=== PATIENT | male | born 1990 | race American Indian/Alaskan Native ===

== ENCOUNTER 2016-05-13 01:47 | Emergency (ER) | payer OTHER ==
[2016-05-13] MEDS ORDERED: Lidocaine 2% w Epi 1:100,000 Inj IJ ONE (02:00)
[2016-05-13 02:03] VITALS: BP 121/72; PULSE 74; RESP 17; TEMP 98.2; O2SAT 99
--- NOTE | 2016-05-13 02:48 | ED PDOC ---
HPI: General Adult Time Seen by Provider: 05/13/16 01:55 Chief Complaint (Nursing): Abnormal Skin Integrity Chief Complaint (Provider): abscess History Per: Patient History/Exam Limitations: no limitations Onset/Duration Of Symptoms: Days (1) Have you had recent travel within the past 21 days to any of the following countries: [place], [place], [place] or [place]?: No Current Symptoms Are (Timing): Still Present Additional Complaint(s): 25yo male presents to the ED with c/o axillary and abdominal abscess since yesterday that have become more painful today. No fever. Has been tested for diabetes but is not diabetic. Past Medical History Reviewed: Historical Data, Nursing Documentation, Vital Signs Vital Signs: Last Vital Signs Temp 98.2 F 05/13/16 01:58 Pulse 74 05/13/16 01:58 Resp 17 05/13/16 01:58 BP 121/72 05/13/16 01:58 Pulse Ox 99 05/13/16 02:57 - Medical History PMH: No Chronic Diseases - Surgical History Surgical History: No Surg Hx - Family History Family History: States: No Known Family Hx - Home Medications Home Medications: Ambulatory Orders Medication Instructions Recorded Penicillin VK [Pen-Vee K] 500 mg PO BID #20 tab 03/16/16 oxyCODONE/Acetaminophen [Percocet 1 ea PO Q6H PRN #15 tab 03/16/16 5/325 mg Tab] Clindamycin [Cleocin] 300 mg PO TID 10 Days 05/13/16 - Allergies Allergies/Adverse Reactions: Allergies Allergy/AdvReac Type Severity Reaction Status Date / Time No Known Allergies Allergy Verified 03/16/16 17:07 Review of Systems ROS Statement: Except As Marked, All Systems Reviewed And Found Negative Constitutional: Negative for: Fever Skin: Positive for: Other (axillary and abdominal abscess ) Physical Exam - Reviewed Nursing Documentation Reviewed: Yes Vital Signs Reviewed: Yes - Physical Exam Appears: Positive for: Well, No Acute Distress Head Exam: Positive for: ATRAUMATIC, NORMAL INSPECTION, NORMOCEPHALIC Skin: Positive for: Warm, Dry Eye Exam: Positive for: Normal appearance Neck: Positive for: Normal, Painless ROM, Supple Gastrointestinal/Abdominal: Positive for: Bowel Sounds, Soft, Other (erythema to skin RLQ measures 3x3cm in diameter without focal fluctuance ). Negative for : Tenderness Extremity: Positive for: Normal ROM, Other (2cm right axillary abscess). Negative for: Deformity Neurologic/Psych: Positive for: Alert, Oriented - ECG O2 Sat by Pulse Oximetry: 99 Pulse Ox Interpretation: Normal (RA) Medical Decision Making Medical Decision Makin: Impression: abscess Plan: Please refer to procedure note. Patient tolerated procedure well and is stable for d/c. Scribe Attestation: Documented by Kt Powell acting as a scribe for Celso Back MD. Provider Scribe Attestation: All medical record entries made by the Scribe were at my direction and personally dictated by me. I have reviewed the chart and agree that the record accurately reflects my personal performance of the history, physical exam, medical decision making, and the department course for this patient. I have also personally directed, reviewed, and agree with the discharge instructions and disposition. Procedures - Incision and Drainage Site: right axilla Blade Size: 10 Progress: Drained right axillary abscess with 2% lidocaine w/ epi (2mls). Dinesh 5mls of pus. Disposition - Clinical Impression Clinical Impression: Abscess - Patient ED Disposition Is Patient to be Admitted: No - Disposition Referrals: Michael Mejia MD [Primary Care Provider] - Disposition: Routine/Home Disposition Time: 02:40 Condition: STABLE Prescriptions: Clindamycin [Cleocin] 300 mg PO TID 10 Days Instructions: Abscess Incision and Drainage (ED)
== END 2016-05-13 03:00 | disposition home or self-care (01) ==
LOC: H.ER 01:47
DX: L02.91 Cutaneous abscess, unspecified (principal)

== ENCOUNTER 2016-07-22 07:39 | Emergency (ER) | payer OTHER ==
[2016-07-22 08:02] VITALS: RESP 18; TEMP 97; O2SAT 98
--- NOTE | 2016-07-22 09:09 | ED PDOC ---
HPI: Chest Pain Time Seen by Provider: 07/22/16 07:56 Chief Complaint (Nursing): Chest Pain Chief Complaint (Provider): Chest Pain History Per: Patient History/Exam Limitations: no limitations Onset/Duration Of Symptoms: Days Current Symptoms Are (Timing): Still Present Severity: Mild Quality: "Pain" Associated Symptoms: denies: Nausea, Dyspnea, Diaphoresis, Syncope Modifying Factors: None Exacerbating Factors: None Additional Complaint(s): Patient is a 26 year old male who presents to ED for ongoing abdominal pain with new onset chest discomfort. Patient notes mild difficulty breathing, pain is described as vague and worse with deep breaths. Denies nausea, vomiting, diarrhea, urinary changes or fever. Notes mild constipation, evaluated by unknown GI specialist who prescribed softeners but only provided mild relief Past Medical History Reviewed: Historical Data, Nursing Documentation, Vital Signs Vital Signs: Last Vital Signs Temp 97 F L 07/22/16 07:59 Pulse 77 07/22/16 09:17 Resp 18 07/22/16 07:59 BP 108/57 L 07/22/16 07:59 Pulse Ox 98 07/22/16 09:17 - Medical History PMH: No Chronic Diseases - Surgical History Surgical History: No Surg Hx - Family History Family History: States: Unknown Family Hx - Living Arrangements Living Arrangements: With Family - Social History Current smoker - smoking cessation education provided: Yes Alcohol: None Drugs: Denies - Home Medications Home Medications: Ambulatory Orders Medication Instructions Recorded Penicillin VK [Pen-Vee K] 500 mg PO BID #20 tab 03/16/16 oxyCODONE/Acetaminophen [Percocet 1 ea PO Q6H PRN #15 tab 03/16/16 5/325 mg Tab] Clindamycin [Cleocin] 300 mg PO TID 10 Days 05/13/16 Ranitidine HCl [Zantac] 150 mg PO BID #20 tablet 07/22/16 - Allergies Allergies/Adverse Reactions: Allergies Allergy/AdvReac Type Severity Reaction Status Date / Time No Known Allergies Allergy Verified 03/16/16 17:07 Review of Systems ROS Statement: Except As Marked, All Systems Reviewed And Found Negative Constitutional: Negative for: Fever, Chills Cardiovascular: Positive for: Chest Pain. Negative for: Palpitations, Light Headedness Respiratory: Positive for: Shortness of Breath Gastrointestinal: Positive for: Abdominal Pain. Negative for: Nausea, Vomiting Genitourinary Male: Negative for: Dysuria, Hematuria Musculoskeletal: Negative for: Neck Pain, Back Pain Skin: Negative for: Rash Neurological: Negative for: Weakness, Numbness Physical Exam - Reviewed Nursing Documentation Reviewed: Yes Vital Signs Reviewed: Yes - Physical Exam Appears: Positive for: Well, Non-toxic Skin: Positive for: Normal Color, Warm, DRY Eye Exam: Positive for: Normal appearance, PERRL Neck: Positive for: Normal, Painless ROM Cardiovascular/Chest: Positive for: Regular Rate, Rhythm. Negative for: Chest Non Tender ((+) anterior chest wall), Murmur Respiratory: Positive for: Normal Breath Sounds. Negative for: Respiratory Distress Gastrointestinal/Abdominal: Positive for: Soft, Tenderness (mild epigastric). Negative for: Distended, Guarding, Rebound Back: Positive for: Normal Inspection Extremity: Positive for: Normal ROM Neurologic/Psych: Positive for: Alert, Oriented - Laboratory Results Result Diagrams: 07/22/16 09:05 07/22/16 09:05 - ECG ECG: Positive for: Interpreted By Me ECG Rhythm: Positive for: Normal QRS, Sinus Rhythm. Negative for: ST/T Changes Rate: 77 O2 Sat by Pulse Oximetry: 98 (RA) Pulse Ox Interpretation: Normal Medical Decision Making Medical Decision Making: Time: 0835 Initial impression: Low risk chest pain, in setting of chronic abdominal pain. Initial plan: -- EKG -- CMP -- Lipase -- Troponin -- CBC -- D-Dimer -- PT/PTT -- CXR -- Pepcid Labs and CXR unremarkable after review DDimer neg No risk factors for premature CAD or PE. Has followup w GI August 02/ Rx zantac. Return ER for any worse or new symptoms. Scribe Attestation: Documented by Elisa Stevens acting as a scribe for Chilo Onofre DO MD Scribe Attestation: All medical record entries made by the Scribe were at my direction and personally dictated by me. I have reviewed the chart and agree that the record accurately reflects my personal performance of the history, physical exam, medical decision making, and the department course for this patient. I have also personally directed, reviewed, and agree with the discharge instructions and disposition. Disposition - Clinical Impression Clinical Impression: Acute chest pain - Patient ED Disposition Is Patient to be Admitted: No Counseled Patient/Family Regarding: Studies Performed, Diagnosis, Need For Followup, Rx Given - Disposition Referrals: Chilo Corrales MD, PhD [Staff Provider] - Disposition: Routine/Home Disposition Time: 11:40 Condition: STABLE Additional Instructions: See GI doctor for further testing and treatment. Return to ER for any new or worsening symptoms. take medication as prescribed. Prescriptions: Ranitidine HCl [Zantac] 150 mg PO BID #20 tablet Instructions: Chest Pain (ED), Abdominal Pain (ED)
[2016-07-22 09:11] LABS: BASO % 0.8 % (0.0-2.0); EOS # 0.1 K/uL (0.0-0.7); EOS % 1.3 % (0.0-4.0); HEMATOCRIT 46.5 % (35.0-51.0); LYMPH # 1.7 K/uL (1.0-4.3); LYMPH % 37.3 % (20.0-40.0); MEAN CELL VOLUME 86.3 fl (80.0-94.0); MEAN CORPUSCULAR HEMOGLOBIN 28.6 pg (27.0-31.0); MEAN CORPUSCULAR HGB CONC 33.1 g/dL (33.0-37.0); MEAN PLATELET VOLUME 8.8 fl (7.2-11.7); MONO # 0.4 K/uL (0.0-0.8); MONO % 9.2 % (0.0-10.0); NEUT # 2.4 K/uL (1.8-7.0); NEUT % 51.4 % (50.0-75.0); NRBC % 0.2 % (0.0-0.0); RED CELL DISTRIBUTION WIDTH 13.8 % (11.5-14.5); WHITE BLOOD COUNT 4.7 K/uL (4.8-10.8)
[2016-07-22 09:36] LABS: ALB/GLOB RATIO 1.3 (1.0-2.1); ALKALINE PHOSPHATASE 75 U/L (38-126); ALT/SGPT 47 U/L (21-72); AST/SGOT 27 U/L (17-59); BILIRUBIN,TOTAL 0.6 mg/dl (0.2-1.3); BLOOD UREA NITROGEN 12 mg/dl (9-20); CALCIUM 9.3 mg/dL (8.4-10.2); CARBON DIOXIDE 23 mmol/L (22-30); CHLORIDE 103 mmol/L (98-107); GFR AFRICAN-AMERICAN > 60; GLUCOSE,RANDOM 98 mg/dL (75-110); LIPASE 73 U/L (23-300); SODIUM 138 mmol/l (132-148)
--- NOTE | 2016-07-22 10:37 | RAD ---
HISTORY: chest pain/ r/o infiltrate COMPARISON: Comparison chest 10/30/2014 TECHNIQUE: Chest PA and lateral FINDINGS: LUNGS: Poor inspiration with low lung volumes, crowded bronchovascular markings and mild bibasilar atelectasis left greater than right PLEURA: No significant pleural effusion identified. No pneumothorax apparent. CARDIOVASCULAR: Normal. OSSEOUS STRUCTURES: No significant abnormalities. VISUALIZED UPPER ABDOMEN: Normal. OTHER FINDINGS: None. IMPRESSION: Poor inspiration with low lung volumes, crowded bronchovascular markings and mild bibasilar atelectasis left greater than right
[2016-07-22 12:00] LABS: PARTIAL THROMBOPLASTIN TIME 33.6 Seconds (25.6-37.1)
[2016-07-22 12:13] VITALS: BP 108/57; PULSE 77
--- NOTE | 2016-07-23 09:54 | CARD ---
APPROVED REPORT EKG Measurement Heart [id number] [id number] <Conclusion> Normal sinus rhythm Minimal voltage criteria for LVH, may be normal variant Borderline ECG
== END 2016-07-22 12:13 | disposition home or self-care (01) ==
LOC: H.ER 07:39
DX: R07.9 Chest pain, unspecified (principal); R10.9 Unspecified abdominal pain; G89.29 Other chronic pain; F17.200 Nicotine dependence, unspecified, uncomplicated

== ENCOUNTER 2016-07-30 06:40 | Emergency (ER) | payer OTHER ==
[2016-07-30 06:54] VITALS: BMI 38.7
[2016-07-30 06:56] VITALS: BP 126/72; PULSE 63; RESP 16; TEMP 98.9; O2SAT 98
--- NOTE | 2016-07-30 07:13 | ED PDOC ---
HPI: Dental Pain/Injury Time Seen by Provider: 07/30/16 06:59 Chief Complaint (Nursing): Dental Pain Chief Complaint (Provider): Dental Pain History Per: Patient History/Exam Limitations: no limitations Onset/Duration Of Symptoms: Days Current Symptoms Are (Timing): Still Present Severity: Moderate Quality: "Pain" Additional Complaint(s): Patient is a 26 year old male who presents to ED for a toothache for 3 days. Patient states he had a cavity in his upper left molar 1 month ago, repaired by a dentist but the filling fell out 4 days ago, pain began the following day. Notes pain is constant but worse with eating or drinking. Denies fever or facial swelling. No fever. States that he called his dentist but the earliest appointment is next month. Past Medical History Reviewed: Historical Data, Nursing Documentation, Vital Signs Vital Signs: Last Vital Signs Temp 98.9 F 07/30/16 06:54 Pulse 63 07/30/16 06:54 Resp 16 07/30/16 06:54 BP 126/72 07/30/16 06:54 Pulse Ox 98 07/30/16 06:54 - Medical History PMH: No Chronic Diseases - Surgical History Surgical History: No Surg Hx - Family History Family History: States: Unknown Family Hx - Living Arrangements Living Arrangements: With Family - Social History Current smoker - smoking cessation education provided: No Ex-Smoker (has not smoked in the last 12 months): No Alcohol: None Drugs: Denies - Home Medications Home Medications: Ambulatory Orders Medication Instructions Recorded Penicillin VK [Pen-Vee K] 500 mg PO BID #20 tab 03/16/16 oxyCODONE/Acetaminophen [Percocet 1 ea PO Q6H PRN #15 tab 03/16/16 5/325 mg Tab] Clindamycin [Cleocin] 300 mg PO TID 10 Days 05/13/16 Ranitidine HCl [Zantac] 150 mg PO BID #20 tablet 07/22/16 Lidocaine 2% Viscous 20 ml MM Q4 PRN #4 oz 07/30/16 - Allergies Allergies/Adverse Reactions: Allergies Allergy/AdvReac Type Severity Reaction Status Date / Time No Known Allergies Allergy Verified 07/30/16 06:54 Review of Systems ROS Statement: Except As Marked, All Systems Reviewed And Found Negative Constitutional: Negative for: Fever ENT: Positive for: Other (toothache). Negative for: Mouth Pain Respiratory: Negative for: Shortness of Breath Physical Exam - Reviewed Nursing Documentation Reviewed: Yes Vital Signs Reviewed: Yes - Physical Exam Appears: Positive for: Non-toxic, No Acute Distress Skin: Positive for: Normal Color, Warm Eye Exam: Positive for: Normal appearance ENT: Positive for: Other (Left upper molar tooth #12 (+) visable cavity with missing filling (-) abscess (-) gun erythema) Neck: Positive for: Normal, Painless ROM Cardiovascular/Chest: Positive for: Regular Rate, Rhythm. Negative for: Murmur Respiratory: Positive for: Normal Breath Sounds. Negative for: Respiratory Distress Extremity: Positive for: Normal ROM Neurologic/Psych: Positive for: Alert, Oriented - ECG O2 Sat by Pulse Oximetry: 98 (RA) Pulse Ox Interpretation: Normal Medical Decision Making Medical Decision Making: Time: 714 Initial impression: Toothache Initial plan: -- Viscous Lidocaine Discussed with patient the importance of following up with dentist, will give patient alternative dentist to try making an appointment with. Patient verbalized understanding. Scribe Attestation: Documented by Elisa Stevens acting as a scribe for Quinn Hinojosa MD MD Scribe Attestation: All medical record entries made by the Scribe were at my direction and personally dictated by me. I have reviewed the chart and agree that the record accurately reflects my personal performance of the history, physical exam, medical decision making, and the department course for this patient. I have also personally directed, reviewed, and agree with the discharge instructions and disposition. Disposition - Clinical Impression Clinical Impression: Toothache - Disposition Referrals: Iggy Caldera MD [Primary Care Provider] - Disposition: Routine/Home Disposition Time: 07:12 Condition: STABLE Additional Instructions: Mr. Hardy, thank you for letting us take care of you today. Return to the ER if your symptoms worsen. It is important you see a dentist so you can get a filling. You can make an appointment with the following dentist: Dr. Bennie Tay [address] [place], [place] [phone] Take the medication list below as prescribed Prescriptions: Lidocaine 2% Viscous 20 ml MM Q4 PRN #4 oz PRN Reason: Pain, Moderate (4-7) Instructions: Toothache (ED) Forms: [employer] (Khmer) Print Language: FAROESE - POA Present On Arrival: None
== END 2016-07-30 07:30 | disposition home or self-care (01) ==
LOC: H.ER 06:40
DX: K08.89 Other specified disorders of teeth and supporting structures (principal)

== ENCOUNTER 2016-09-01 10:11 | Emergency (ER) | payer OTHER ==
[2016-09-01 10:14] VITALS: BP 119/79; PULSE 76; TEMP 97; BMI 35.9
[2016-09-01 10:20] VITALS: O2SAT 98
[2016-09-01] MEDS ORDERED: Oxycodone/Acetaminophen 5/325 mg Tab PO STA (10:59)
--- NOTE | 2016-09-01 11:01 | ED PDOC ---
Lower Extremity Pain/Injury Time Seen by Provider: 09/01/16 10:17 Chief Complaint (Nursing): Lower Extremity Problem/Injury Chief Complaint (Provider): ankle injury Additional Complaint(s): 26 yo male, no PMH, presents to ED with complaint os fleft ankle pain sustained when he accidentally dropped a 100 lb weight on his ankle. 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 Past Medical History Reviewed: Nursing Documentation, Vital Signs Vital Signs: Last Vital Signs Temp 97 F L 09/01/16 10:13 Pulse 76 09/01/16 10:13 Resp BP 119/79 09/01/16 10:13 Pulse Ox 98 09/01/16 10:17 - Medical History PMH: No Chronic Diseases - Surgical History Surgical History: No Surg Hx - Family History Family History: States: Unknown Family Hx - Living Arrangements Living Arrangements: With Family - Social History Current smoker - smoking cessation education provided: No Alcohol: Social Drugs: Denies - Home Medications Home Medications: Ambulatory Orders Medication Instructions Recorded Penicillin VK [Pen-Vee K] 500 mg PO BID #20 tab 03/16/16 oxyCODONE/Acetaminophen [Percocet 1 ea PO Q6H PRN #15 tab 03/16/16 5/325 mg Tab] Clindamycin [Cleocin] 300 mg PO TID 10 Days 05/13/16 Ranitidine HCl [Zantac] 150 mg PO BID #20 tablet 07/22/16 Lidocaine 2% Viscous 20 ml MM Q4 PRN #4 oz 07/30/16 Ibuprofen [Motrin] 600 mg PO Q6 #20 tab 09/01/16 - Allergies Allergies/Adverse Reactions: Allergies Allergy/AdvReac Type Severity Reaction Status Date / Time No Known Allergies Allergy Verified 09/01/16 10:17 Review of Systems ROS Statement: Except As Marked, All Systems Reviewed And Found Negative Musculoskeletal: Positive for: Other (ankle pain) Physical Exam - Reviewed Nursing Documentation Reviewed: Yes Vital Signs Reviewed: Yes - Physical Exam Appears: Positive for: Well, Non-toxic, No Acute Distress Head Exam: Positive for: ATRAUMATIC, NORMAL INSPECTION, NORMOCEPHALIC Skin: Positive for: Normal Color, Warm, DRY Eye Exam: Positive for: EOMI, Normal appearance, PERRL ENT: Positive for: Normal ENT Inspection Neck: Positive for: Normal, Painless ROM Cardiovascular/Chest: Positive for: Regular Rate, Rhythm Respiratory: Positive for: CNT, Normal Breath Sounds Gastrointestinal/Abdominal: Positive for: Normal Exam, Bowel Sounds, Soft Back: Positive for: Normal Inspection Extremity: Positive for: Normal ROM, Tenderness (over medial aspect of ankle, no edema or ecchymosis) Neurologic/Psych: Positive for: Alert, Oriented - ECG O2 Sat by Pulse Oximetry: 98 Medical Decision Making Medical Decision Making: Pt notes pain is a 10. Percocet PO administered XR: NAD, as read by Ap-C RICE therapy advised. Balwinder wrap applied. Disposition - Clinical Impression Clinical Impression: Ankle injury - Patient ED Disposition Is Patient to be Admitted: No - Disposition Disposition: Routine/Home Disposition Time: 12:23 Condition: STABLE Prescriptions: Ibuprofen [Motrin] 600 mg PO Q6 #20 tab Instructions: Contusion in Adults (ED)
[2016-09-01] MEDS ORDERED: Oxycodone/Acetaminophen 5/325 mg Tab ONE (11:22)
--- NOTE | 2016-09-01 11:39 | RAD ---
PROCEDURE: Left Ankle Radiographs. HISTORY: dropped 100lbweight on ankle COMPARISON: None FINDINGS: BONES: Normal. No fracture. JOINTS: Normal. No osteoarthritis. Ankle mortise maintained. Talar dome intact SOFT TISSUES: Normal. OTHER FINDINGS: None. IMPRESSION: Normal left ankle radiographs.
[2016-09-01 12:27] VITALS: RESP 14
== END 2016-09-01 12:25 | disposition home or self-care (01) ==
LOC: H.ER 10:11
DX: S99.911A Unspecified injury of right ankle, initial encounter (principal); W22.8XXA Striking against or struck by other objects, initial encounter; Y99.0 Civilian activity done for income or pay

== ENCOUNTER 2017-01-22 14:53 | Emergency (ER) | payer OTHER ==
[2017-01-22 14:54] VITALS: BMI 35.9
[2017-01-22 15:04] VITALS: TEMP 98.2
[2017-01-22] MEDS ORDERED: Sodium Chloride 0.9% 1,000 ML IV STA (15:13)
[2017-01-22] MEDS ORDERED: DiphenhydrAMINE 50 mg/ml Inj IVP STA (15:13)
--- NOTE | 2017-01-22 15:19 | ED PDOC ---
HPI: CCC, URI, Sore Throat Time Seen by Provider: 01/22/17 15:05 Chief Complaint (Nursing): Shortness Of Breath Chief Complaint (Provider): throat pain History Per: Patient History/Exam Limitations: no limitations Onset/Duration Of Symptoms: Hrs (x2) Current Symptoms Are (Timing): Still Present Additional Complaint(s): 26 year old male who presents to the emergency department with a complaint of throat swelling associated with hoarseness and itchiness status post ingesting Aleeve 2 hours prior to arrival. Denied any shortness of breath. PMD: Iggy Caldera MD Past Medical History Reviewed: Historical Data, Nursing Documentation, Vital Signs Vital Signs: Last Vital Signs Temp 98.2 F 01/22/17 15:00 Pulse Resp 18 01/22/17 15:00 BP Pulse Ox 100 01/22/17 15:00 - Medical History PMH: No Chronic Diseases - Family History Family History: States: Unknown Family Hx - Home Medications Home Medications: Ambulatory Orders Medication Instructions Recorded Penicillin VK [Pen-Vee K] 500 mg PO BID #20 tab 03/16/16 oxyCODONE/Acetaminophen [Percocet 1 ea PO Q6H PRN #15 tab 03/16/16 5/325 mg Tab] Clindamycin [Cleocin] 300 mg PO TID 10 Days cap 05/13/16 Ranitidine HCl [Zantac] 150 mg PO BID #20 tablet 07/22/16 Lidocaine 2% Viscous 20 ml MM Q4 PRN #4 oz 07/30/16 Ibuprofen [Motrin] 600 mg PO Q6 #20 tab 09/01/16 Cetirizine HCl [Zyrtec] 10 mg PO DAILY #10 capsule 01/22/17 Famotidine [Pepcid] 20 mg PO Q12 #20 tab 01/22/17 predniSONE [predniSONE Tab] 10 mg PO TID #15 tab 01/22/17 - Allergies Allergies/Adverse Reactions: Allergies Allergy/AdvReac Type Severity Reaction Status Date / Time No Known Allergies Allergy Verified 09/01/16 10:17 Review of Systems ROS Statement: Except As Marked, All Systems Reviewed And Found Negative ENT: Positive for: Throat Pain (and itchiness), Throat Swelling, Other ( hoarsenss) Respiratory: Negative for: Shortness of Breath Physical Exam - Reviewed Nursing Documentation Reviewed: Yes Vital Signs Reviewed: Yes - Physical Exam Appears: Positive for: Well, Non-toxic, No Acute Distress Head Exam: Positive for: ATRAUMATIC, NORMAL INSPECTION, NORMOCEPHALIC Skin: Positive for: Normal Color. Negative for: Rash ENT: Positive for: Pharyngeal Erythema (mild). Negative for: Normal ENT Inspection, Tonsillar Swelling (or stridor/trismus) Cardiovascular/Chest: Positive for: Regular Rate, Rhythm, Chest Non Tender Respiratory: Positive for: Normal Breath Sounds (bilaterally). Negative for: Decreased Breath Sounds, Wheezing, Respiratory Distress Neurologic/Psych: Positive for: Alert (x3), Oriented Medical Decision Making Medical Decision Making: Initial Impression: Allergic reaction Initial Plan: * Benadryl 50mg IVP * NS 1,000ml IV per 100mls/hr * Pepcid 20mg IVP * SOLU-medrol 125mg IVP Scribe Attestation: Documented by Nydai Moreira, acting as a scribe for Andrea Carson MD. Provider Scribe Attestation: All medical record entries made by the Scribe were at my direction and personally dictated by me. I have reviewed the chart and agree that the record accurately reflects my personal performance of the history, physical exam, medical decision making, and the department course for this patient. I have also personally directed, reviewed, and agree with the discharge instructions and disposition. Disposition - Clinical Impression Clinical Impression: Allergic reaction - Patient ED Disposition Is Patient to be Admitted: No Counseled Patient/Family Regarding: Diagnosis, Need For Followup, Rx Given - Disposition Referrals: [facility] [Outside] Disposition: Routine/Home Disposition Time: 17:35 Condition: FAIR Prescriptions: Cetirizine HCl [Zyrtec] 10 mg PO DAILY #10 capsule Famotidine [Pepcid] 20 mg PO Q12 #20 tab predniSONE [predniSONE Tab] 10 mg PO TID #15 tab Instructions: General Allergic Reaction (ED) Forms: [employer] (Namibian)
[2017-01-22 17:04] VITALS: O2SAT 100
[2017-01-22 18:38] VITALS: BP 127/82; RESP 17
== END 2017-01-22 18:10 | disposition home or self-care (01) ==
LOC: H.ER 14:53
DX: T78.40XA Allergy, unspecified, initial encounter (principal)
CPT/HCPCS: 96374; 96375; 99283; J1200; J2930; J7040

== ENCOUNTER 2017-04-12 07:36 | Emergency (ER) | payer OTHER ==
[2017-04-12 07:37] VITALS: BMI 35.9
[2017-04-12 07:42] VITALS: BP 134/79; PULSE 78; TEMP 98.4; O2SAT 97
[2017-04-12 07:51] VITALS: RESP 16
--- NOTE | 2017-04-12 08:17 | ED PDOC ---
HPI: Dental Pain/Injury Time Seen by Provider: 04/12/17 08:02 Chief Complaint (Nursing): Dental Pain Chief Complaint (Provider): Dental Pain History Per: Patient History/Exam Limitations: no limitations Onset/Duration Of Symptoms: Days (x2 weeks), Persistent Current Symptoms Are (Timing): Still Present Additional Complaint(s): 26 year old male with medical history of reflux disease, presents to the emergency department with a complaint of left-sided upper and lower teeth pain worsen in the last 2 weeks. Denied any fever, chills, nausea, vomiting, cough, sore throat, chest pain or shortness of breath. Patient stated he was seen by a dentist 1 month ago for similar symptoms and advised to have oral surgery. He reported surgery was never scheduled but completed course of antibiotics prescribed. Patient noted he is allergic to Tylenol but took 1 tablet of Percocet from his mother for pain relief last night. PMD: none provided Past Medical History Reviewed: Nursing Documentation, Vital Signs Vital Signs: Last Vital Signs Temp 98.4 F 04/12/17 07:47 Pulse 78 04/12/17 07:47 Resp 16 04/12/17 07:47 BP 134/79 04/12/17 07:47 Pulse Ox 97 04/12/17 07:47 - Medical History PMH: GERD Denies: Chronic Kidney Disease - Surgical History Surgical History: No Surg Hx - Family History Family History: States: Unknown Family Hx - Living Arrangements Living Arrangements: Alone - Social History Current smoker - smoking cessation education provided: No Alcohol: Social Drugs: Denies - Immunization History Hx Tetanus Toxoid Vaccination: No Hx Influenza Vaccination: No Hx Pneumococcal Vaccination: No - Home Medications Home Medications: Ambulatory Orders Medication Instructions Recorded Penicillin VK [Pen-Vee K] 500 mg PO BID #20 tab 03/16/16 oxyCODONE/Acetaminophen [Percocet 1 ea PO Q6H PRN #15 tab 03/16/16 5/325 mg Tab] Clindamycin [Cleocin] 300 mg PO TID 10 Days cap 05/13/16 Ranitidine HCl [Zantac] 150 mg PO BID #20 tablet 07/22/16 Lidocaine 2% Viscous 20 ml MM Q4 PRN #4 oz 07/30/16 Ibuprofen [Motrin] 600 mg PO Q6 #20 tab 09/01/16 Cetirizine HCl [Zyrtec] 10 mg PO DAILY #10 capsule 01/22/17 Famotidine [Pepcid] 20 mg PO Q12 #20 tab 01/22/17 predniSONE [predniSONE Tab] 10 mg PO TID #15 tab 01/22/17 Clindamycin [Cleocin] 300 mg PO QID 7 Days cap 04/12/17 - Allergies Allergies/Adverse Reactions: Allergies Allergy/AdvReac Type Severity Reaction Status Date / Time acetaminophen [From Tylenol] Allergy SWELLING Verified 04/12/17 07:52 ibuprofen [From Motrin] Allergy SWELLING Verified 04/12/17 07:52 naproxen [From Aleve] Allergy SWELLING Verified 04/12/17 07:52 Review of Systems ROS Statement: Except As Marked, All Systems Reviewed And Found Negative Constitutional: Negative for: Fever, Chills ENT: Positive for: Mouth Pain (left sided upper/lower teeth pain). Negative for : Throat Pain Cardiovascular: Negative for: Chest Pain Respiratory: Negative for: Cough, Shortness of Breath Gastrointestinal: Negative for: Nausea, Vomiting Physical Exam - Reviewed Nursing Documentation Reviewed: Yes Vital Signs Reviewed: Yes - Physical Exam Appears: Positive for: Well, Non-toxic, No Acute Distress Skin: Positive for: Normal Color, Warm, DRY ENT: Positive for: Other (left bottom molar with erythema and tenderness on gum. left 3rd upper tooth tenderness). Negative for: Tonsillar Swelling (or gum swelling/abscess noted) Neck: Positive for: Normal, Supple Cardiovascular/Chest: Positive for: Regular Rate, Rhythm, Chest Non Tender Respiratory: Positive for: Normal Breath Sounds. Negative for: Decreased Breath Sounds, Respiratory Distress Back: Positive for: Normal Inspection Extremity: Positive for: Normal ROM Neurologic/Psych: Positive for: Alert (x3), Oriented - ECG O2 Sat by Pulse Oximetry: 97 (RA) Pulse Ox Interpretation: Normal - Progress ED Course And Treament: 824: Stable. AAOx3. Allergic to tylenol and motrin, but able to take percocet at home with no issues. Pt. with chronic dental issues. Fu with pcp and dentist. Medical Decision Making Medical Decision Making: Initial Impression: Dental pain Time: 815 --Upon provider evaluation, patient is medically stable and requires no further treatment in the ED at this time. Patient will be discharged home with Rx for Cleocin 300mg. Counseling was provided and all questions were answered regarding diagnosis and need for follow up with dentist in 2 days. There is agreement to discharge plan. Return if symptoms persist or worsen. Clinical Impression: Dental caries Scribe Attestation: Documented by Nydia Moreira, acting as a scribe for Stalin Saucedo MD. Provider Scribe Attestation: All medical record entries made by the Scribe were at my direction and personally dictated by me. I have reviewed the chart and agree that the record accurately reflects my personal performance of the history, physical exam, medical decision making, and the department course for this patient. I have also personally directed, reviewed, and agree with the discharge instructions and disposition. Disposition - Clinical Impression Clinical Impression: Dental caries - Patient ED Disposition Is Patient to be Admitted: No Counseled Patient/Family Regarding: Diagnosis, Need For Followup, Rx Given - Disposition Referrals: [facility] [Outside] - 04/13/17 Disposition: Routine/Home Disposition Time: 08:16 Condition: STABLE Additional Instructions: Make sure to see your dentist in the next 2 days without fail. Return if not better in 3 days. Prescriptions: Clindamycin [Cleocin] 300 mg PO QID 7 Days cap Instructions: Dental Pain Forms: [employer] [facility] ([place]), [facility] ED School/Work Excuse
== END 2017-04-12 08:25 | disposition home or self-care (01) ==
LOC: H.ER 07:36
DX: K02.9 Dental caries, unspecified (principal); K21.9 Gastro-esophageal reflux disease without esophagitis; Z88.6 Allergy status to analgesic agent

== ENCOUNTER 2017-08-13 05:22 | Emergency (ER) | payer MEDICAID ==
[2017-08-13 05:22] VITALS: BMI 35.9
[2017-08-13 05:29] VITALS: BP 123/68; PULSE 89; RESP 18; TEMP 97.9; O2SAT 94
--- NOTE | 2017-08-13 05:51 | ED PDOC ---
HPI: General Adult Time Seen by Provider: 08/13/17 05:35 Chief Complaint (Nursing): Medical Clearance History Per: Patient History/Exam Limitations: intoxication Additional Complaint(s): Patient brought in for medical clearance for incarceration. Has no complaints, just states he drank alcohol. No drugs. No suicidal or homicidal thoughts. Past Medical History Reviewed: Historical Data, Nursing Documentation, Vital Signs Vital Signs: Last Vital Signs Temp 97.9 F 08/13/17 05:24 Pulse 89 08/13/17 05:24 Resp 18 08/13/17 05:24 BP 123/68 08/13/17 05:24 Pulse Ox 94 L 08/13/17 05:24 - Medical History PMH: GERD Denies: Chronic Kidney Disease - Family History Family History: States: Unknown Family Hx - Immunization History Hx Tetanus Toxoid Vaccination: No Hx Influenza Vaccination: No Hx Pneumococcal Vaccination: No - Home Medications Home Medications: Ambulatory Orders Medication Instructions Recorded Penicillin VK [Penicillin VK Tab] 500 mg PO BID #20 tab 03/16/16 oxyCODONE/Acetaminophen [Percocet 1 ea PO Q6H PRN #15 tab 03/16/16 5/325 mg Tab] Clindamycin [Cleocin] 300 mg PO TID 10 Days cap 05/13/16 Ranitidine HCl [Zantac] 150 mg PO BID #20 tablet 07/22/16 Lidocaine 2% Viscous 20 ml MM Q4 PRN #4 oz 07/30/16 Ibuprofen [Motrin] 600 mg PO Q6 #20 tab 09/01/16 Cetirizine HCl [Zyrtec] 10 mg PO DAILY #10 capsule 01/22/17 Famotidine [Pepcid] 20 mg PO Q12 #20 tab 01/22/17 predniSONE [predniSONE Tab] 10 mg PO TID #15 tab 01/22/17 Clindamycin [Cleocin] 300 mg PO QID 7 Days cap 04/12/17 - Allergies Allergies/Adverse Reactions: Allergies Allergy/AdvReac Type Severity Reaction Status Date / Time acetaminophen [From Tylenol] Allergy SWELLING Verified 04/12/17 07:52 ibuprofen [From Motrin] Allergy SWELLING Verified 04/12/17 07:52 naproxen [From Aleve] Allergy SWELLING Verified 04/12/17 07:52 Review of Systems ROS Statement: Except As Marked, All Systems Reviewed And Found Negative Physical Exam - Reviewed Nursing Documentation Reviewed: Yes Vital Signs Reviewed: Yes - Physical Exam Appears: Positive for: Well, Non-toxic, No Acute Distress Head Exam: Positive for: ATRAUMATIC, NORMAL INSPECTION, NORMOCEPHALIC Skin: Positive for: Normal Color, Warm, DRY Eye Exam: Positive for: EOMI, Normal appearance, PERRL ENT: Positive for: Normal ENT Inspection Neck: Positive for: Normal, Painless ROM Cardiovascular/Chest: Positive for: Regular Rate, Rhythm Respiratory: Positive for: CNT, Normal Breath Sounds Gastrointestinal/Abdominal: Positive for: Normal Exam, Soft. 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 Disposition - Clinical Impression Clinical Impression: Alcohol abuse - Disposition Referrals: [facility] [Outside] Disposition Time: 05:51 Condition: STABLE Additional Instructions: Patient is medically and psychiatrically cleared for incarceration. Instructions: Alcohol Abuse and Alcoholism (DC), Effects of Alcohol on Your Health Forms: [employer] [facility] ([place])
== END 2017-08-13 06:30 ==
LOC: H.ER 05:22
DX: F10.10 Alcohol abuse, uncomplicated (principal); Z02.89 Encounter for other administrative examinations

== ENCOUNTER 2017-12-01 07:27 | Emergency (ER) | payer MEDICAID ==
[2017-12-01 07:27] VITALS: BMI 35.9
[2017-12-01 07:31] VITALS: O2SAT 97
--- NOTE | 2017-12-01 10:06 | ED PDOC ---
HPI: General Adult Time Seen by Provider: 12/01/17 08:07 Chief Complaint (Nursing): ENT Problem Chief Complaint (Provider): ENT Problem History Per: Patient History/Exam Limitations: no limitations Onset/Duration Of Symptoms: Days (x 1) Current Symptoms Are (Timing): Still Present Additional Complaint(s): 27 year old male with right sided ear pain that began yesterday. He denies fever, drainage from ear and recent swimming. PMD: Dr. Brittany Vivas Past Medical History Reviewed: Historical Data, Nursing Documentation, Vital Signs Vital Signs: Last Vital Signs Temp 98.3 F 12/01/17 07:29 Pulse 72 12/01/17 07:29 Resp 17 12/01/17 07:29 BP 118/73 12/01/17 07:29 Pulse Ox 97 12/01/17 07:29 - Medical History PMH: GERD Denies: Chronic Kidney Disease - Surgical History Surgical History: No Surg Hx - Family History Family History: States: Unknown Family Hx - Immunization History Hx Tetanus Toxoid Vaccination: No Hx Influenza Vaccination: No Hx Pneumococcal Vaccination: No - Home Medications Home Medications: Ambulatory Orders Medication Instructions Recorded Penicillin VK [Penicillin VK Tab] 500 mg PO BID #20 tab 03/16/16 oxyCODONE/Acetaminophen [Percocet 1 ea PO Q6H PRN #15 tab 03/16/16 5/325 mg Tab] Clindamycin [Cleocin] 300 mg PO TID 10 Days cap 05/13/16 Ranitidine HCl [Zantac] 150 mg PO BID #20 tablet 07/22/16 Lidocaine 2% Viscous 20 ml MM Q4 PRN #4 oz 07/30/16 Ibuprofen [Motrin] 600 mg PO Q6 #20 tab 09/01/16 Cetirizine HCl [Zyrtec] 10 mg PO DAILY #10 capsule 01/22/17 Famotidine [Pepcid] 20 mg PO Q12 #20 tab 01/22/17 predniSONE [predniSONE Tab] 10 mg PO TID #15 tab 01/22/17 Clindamycin [Cleocin] 300 mg PO QID 7 Days cap 04/12/17 Ciprofloxacin/Dexamethasone 2 drop AD BID #1 bottle 12/01/17 [Ciprodex Otic] - Allergies Allergies/Adverse Reactions: Allergies Allergy/AdvReac Type Severity Reaction Status Date / Time acetaminophen [From Tylenol] Allergy SWELLING Verified 04/12/17 07:52 ibuprofen [From Motrin] Allergy SWELLING Verified 04/12/17 07:52 naproxen [From Aleve] Allergy SWELLING Verified 04/12/17 07:52 Review of Systems ROS Statement: Except As Marked, All Systems Reviewed And Found Negative Constitutional: Negative for: Fever ENT: Positive for: Ear Pain (right ). Negative for: Ear Discharge Physical Exam - Reviewed Nursing Documentation Reviewed: Yes Vital Signs Reviewed: Yes - Physical Exam Appears: Positive for: Non-toxic, No Acute Distress Head Exam: Positive for: ATRAUMATIC, NORMAL INSPECTION, NORMOCEPHALIC Skin: Positive for: Normal Color, Warm, Dry Eye Exam: Positive for: EOMI, Normal appearance, PERRL ENT: Positive for: Other (right ear canal is tender and swollen) Cardiovascular/Chest: Positive for: Regular Rate, Rhythm. Negative for: Murmur Respiratory: Positive for: Normal Breath Sounds. Negative for: Wheezing, Respiratory Distress Neurologic/Psych: Positive for: Alert, Oriented. Negative for: Motor/Sensory Deficits - ECG O2 Sat by Pulse Oximetry: 97 ( RA) Pulse Ox Interpretation: Normal Medical Decision Making Medical Decision Makin:00 --Patient is stable and will be discharged with a prescription for Ciprodex ear drops. Diagnosis is otitis externa. Scribe Attestation: Documented by Lissette Giron, acting as a scribe for Octavia Bautista MD Provider Scribe Attestation: All medical record entries made by the Scribe were at my direction and personally dictated by me. I have reviewed the chart and agree that the record accurately reflects my personal performance of the history, physical exam, medical decision making, and the department course for this patient. I have also personally directed, reviewed, and agree with the discharge instructions and disposition. Disposition - Clinical Impression Clinical Impression: Otitis externa - Patient ED Disposition Is Patient to be Admitted: No - Disposition Referrals: Brijesh Acosta MD [Staff Provider] - Disposition: Routine/Home Disposition Time: 10:05 Condition: GOOD Additional Instructions: JOHNNY GARCIAS, thank you for letting us take care of you today. Your provider was Octavia Dela Cruz MD and you were treated for RT EAR PAIN. The emergency medical care you received today was directed at your acute symptoms. If you were prescribed any medication, please fill it and take as directed. It may take several days for your symptoms to resolve. Return to the Emergency Department if your symptoms worsen, do not improve, or if you have any other problems. Please contact your doctor or call one of the physicians/clinics you have been referred to that are listed on the Patient Visit Information form that is included in your discharge packet. Bring any paperwork you were given at discharge with you along with any medications you are taking to your follow up visit. Our treatment cannot replace ongoing medical care by a primary care provider outside of the emergency department. Thank you for allowing the [facility] team to be part of your care today. If you had an X-Ray or CT scan: A Radiologist will review the ED reading if any change in treatment is needed we will contact you. If you had a blood, urine, or wound culture: It will take several days for the results, if any change in treatment is needed we will contact you. If you had an STI test: It will take 48 hours for the results. Please call after 1 week if you have not heard back. Prescriptions: Ciprofloxacin/Dexamethasone [Ciprodex Otic] 2 drop AD BID #1 bottle Instructions: Outer Ear Infection
[2017-12-01 10:11] VITALS: BP 110/78; PULSE 78; RESP 19; TEMP 97
== END 2017-12-01 10:09 | disposition home or self-care (01) ==
LOC: H.ER 07:27
DX: H60.91 Unspecified otitis externa, right ear (principal); Z88.6 Allergy status to analgesic agent

== ENCOUNTER 2017-12-15 09:59 | Emergency (ER) | payer MEDICAID ==
[2017-12-15 09:59] VITALS: BMI 35.9
[2017-12-15 10:07] VITALS: TEMP 97.3; O2SAT 98
[2017-12-15] MEDS ORDERED: Sodium Chloride 0.9% 1,000 ML IV STA (10:42)
[2017-12-15 11:17] LABS: BASO % 0.5 % (0.0-2.0); EOS # 0.1 K/uL (0.0-0.7); EOS % 0.8 % (0.0-4.0); HEMOGLOBIN 15.1 g/dL (12.0-18.0); LYMPH # 2.3 K/uL (1.0-4.3); LYMPH % 33.7 % (20.0-40.0); MEAN CELL VOLUME 86.6 fl (80.0-94.0); MEAN CORPUSCULAR HEMOGLOBIN 28.9 pg (27.0-31.0); MEAN CORPUSCULAR HGB CONC 33.4 g/dL (33.0-37.0); MEAN PLATELET VOLUME 8.4 fl (7.2-11.7); MONO # 0.6 K/uL (0.0-0.8); MONO % 8.3 % (0.0-10.0); NEUT # 3.8 K/uL (1.8-7.0); NEUT % 56.7 % (50.0-75.0); NRBC % 0.1 % (0.0-0.0); RBC 5.23 Mil/uL (4.40-5.90); WHITE BLOOD COUNT 6.7 K/uL (4.8-10.8)
[2017-12-15 11:30] LABS: SQUAMOUS EPITHIAL < 1 /hpf (0-5); URINE BILIRUBIN NEGATIVE (NEGATIVE); URINE BLOOD NEGATIVE (NEGATIVE); URINE CLARITY SLIGHTY-CLOUDY (Clear); URINE COLOR YELLOW (YELLOW); URINE GLUCOSE (UA) NEG (Normal); URINE LEUKOCYTE ESTERASE NEG Leu/uL (Negative); URINE PROTEIN 30 mg/dL (NEGATIVE)
[2017-12-15 11:35] LABS: ALB/GLOB RATIO 1.1 (1.0-2.1); ALBUMIN 4.1 g/dL (3.5-5.0); ALT/SGPT 82 U/L (21-72); AST/SGOT 45 U/L (17-59); BLOOD UREA NITROGEN 15 mg/dl (9-20); CALCIUM 9.6 mg/dL (8.4-10.2); GFR NON-AFRICAN AMERICAN > 60
--- NOTE | 2017-12-15 11:51 | ED PDOC ---
HPI: Abdomen Time Seen by Provider: 12/15/17 10:23 Chief Complaint (Nursing): Abdominal Pain Chief Complaint (Provider): Left sided abdominal pain on/off x 3 months History Per: Patient History/Exam Limitations: no limitations Onset/Duration Of Symptoms: Days Outside of [place] travel?: No Current Symptoms Are (Timing): Still Present Location Of Pain/Discomfort: LUQ Quality Of Discomfort: Sharp Associated Symptoms: denies: Fever, Chills, Nausea, Vomiting, Diarrhea, Loss Of Appetite, Back Pain, Constipation, Urinary Symptoms Additional Complaint(s): 27 yo male with no medical problems presents for evaluation of left sided abdominal pain x 3 months. Pt states it comes and goes. PT states he did not have PMD due to insurance issues so he as not yet been seen for pain. PT has not taken any medications at home for symptoms. PT states today the pain came and was slightly worse then normal which prompted his ER visit. Pt denies fever/chills, N/V/D. No similar in the past. Past Medical History Reviewed: Historical Data, Nursing Documentation, Vital Signs Vital Signs: Last Vital Signs Temp 97.3 F L 12/15/17 10:06 Pulse 78 12/15/17 10:06 Resp 20 12/15/17 10:06 BP 126/71 12/15/17 10:06 Pulse Ox 98 12/15/17 10:06 - Medical History PMH: GERD Denies: Chronic Kidney Disease - Surgical History Surgical History: No Surg Hx - Family History Family History: States: Unknown Family Hx - Living Arrangements Living Arrangements: With Family - Social History Current smoker - smoking cessation education provided: No - Immunization History Hx Tetanus Toxoid Vaccination: No Hx Influenza Vaccination: No Hx Pneumococcal Vaccination: No - Home Medications Home Medications: Ambulatory Orders Medication Instructions Recorded Penicillin VK [Penicillin VK Tab] 500 mg PO BID #20 tab 03/16/16 oxyCODONE/Acetaminophen [Percocet 1 ea PO Q6H PRN #15 tab 03/16/16 5/325 mg Tab] Clindamycin [Cleocin] 300 mg PO TID 10 Days cap 05/13/16 Ranitidine HCl [Zantac] 150 mg PO BID #20 tablet 07/22/16 Lidocaine 2% Viscous 20 ml MM Q4 PRN #4 oz 07/30/16 Ibuprofen [Motrin] 600 mg PO Q6 #20 tab 09/01/16 Cetirizine HCl [Zyrtec] 10 mg PO DAILY #10 capsule 01/22/17 Famotidine [Pepcid] 20 mg PO Q12 #20 tab 01/22/17 predniSONE [predniSONE Tab] 10 mg PO TID #15 tab 01/22/17 Clindamycin [Cleocin] 300 mg PO QID 7 Days cap 04/12/17 Ciprofloxacin/Dexamethasone 2 drop AD BID #1 bottle 12/01/17 [Ciprodex Otic] - Allergies Allergies/Adverse Reactions: Allergies Allergy/AdvReac Type Severity Reaction Status Date / Time acetaminophen [From Tylenol] Allergy SWELLING Verified 04/12/17 07:52 ibuprofen [From Motrin] Allergy SWELLING Verified 04/12/17 07:52 naproxen [From Aleve] Allergy SWELLING Verified 04/12/17 07:52 Review of Systems ROS Statement: Except As Marked, All Systems Reviewed And Found Negative Constitutional: Negative for: Fever, Chills Cardiovascular: Negative for: Chest Pain, Palpitations Respiratory: Negative for: Cough, Shortness of Breath Gastrointestinal: Positive for: Abdominal Pain. Negative for: Nausea, Vomiting, Diarrhea, Constipation Physical Exam - Reviewed Nursing Documentation Reviewed: Yes Vital Signs Reviewed: Yes - Physical Exam Appears: Positive for: Well, Non-toxic, No Acute Distress Head Exam: Positive for: ATRAUMATIC, NORMAL INSPECTION, NORMOCEPHALIC Skin: Positive for: Normal Color, Warm, DRY Eye Exam: Positive for: Normal appearance ENT: Positive for: Normal ENT Inspection Neck: Positive for: Normal Cardiovascular/Chest: Positive for: Regular Rate, Rhythm Respiratory: Positive for: Normal Breath Sounds. Negative for: Accessory Muscle Use, Respiratory Distress Gastrointestinal/Abdominal: Positive for: Normal Exam, Soft. Negative for: Tenderness Back: Positive for: Normal Inspection Extremity: Positive for: Normal ROM Neurologic/Psych: Positive for: Alert, Oriented - Laboratory Results Result Diagrams: 12/15/17 11:05 12/15/17 11:05 - ECG O2 Sat by Pulse Oximetry: 98 Pulse Ox Interpretation: Normal Medical Decision Making Medical Decision Making: Labs normal. Discussed f/u with GI Disposition - Clinical Impression Clinical Impression: Abdominal pain - Patient ED Disposition Is Patient to be Admitted: No Counseled Patient/Family Regarding: Diagnosis, Need For Followup - Disposition Referrals: Chilo Corrales MD, PhD [Staff Provider] - Disposition: Routine/Home Disposition Time: 11:59 Condition: GOOD Instructions: Acute Abdomen (Belly Pain), Adult (DC)
[2017-12-15 13:15] VITALS: BP 122/70; PULSE 74; RESP 18
== END 2017-12-15 12:05 | disposition home or self-care (01) ==
LOC: H.ER 09:59
DX: R10.9 Unspecified abdominal pain (principal)
CPT/HCPCS: 80053; 81003; 85025; 87086; 99283; J7030